=== PATIENT | female | born 1955 | race Caucasian/White ===

== ENCOUNTER → 2021-11-19 14:30 | Outpatient (BNVA) | payer OTHER, SELFPAY | PROVIDERS: PCP Internal Medicine; Visit Provider Hospitalist ==

== ENCOUNTER → 2022-01-24 15:28 | Outpatient (BNVA) | payer MEDICARE, SELFPAY | PROVIDERS: PCP Internal Medicine; Visit Provider Hospitalist | DX: R06.00 Dyspnea, unspecified (principal); J45.909 Unspecified asthma, uncomplicated; G47.33 Obstructive sleep apnea (adult) (pediatric); Z99.89 Dependence on other enabling machines and devices | CPT/HCPCS: 99212 ==

== ENCOUNTER → 2022-07-23 08:48 | Outpatient (BNVA) | payer MEDICARE, OTHER, SELFPAY | PROVIDERS: PCP Internal Medicine; Visit Provider Hospitalist | DX: G47.33 Obstructive sleep apnea (adult) (pediatric) (principal); R06.00 Dyspnea, unspecified; J45.909 Unspecified asthma, uncomplicated; Z99.89 Dependence on other enabling machines and devices | CPT/HCPCS: 99212 ==

== ENCOUNTER 2023-07-24 09:40 | Outpatient (AMB) | payer MEDICARE, SELFPAY ==
--- NOTE | 2023-07-24 09:45 | MHC.OFFVIS ---
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 Apparently she has had severe sleep apnea initially diagnosed back in 2014 in a split study PSG done at [facility]. Appears reviewed the results. The patient was titrated on PAP therapy and was able to resolve the sleep apnea with APAP. The patient has been using the same machine now for more than 7 years. She has no longer active with a [employer]. She has not gotten supplies in more than 3 for years. she still currently using her original CPAP That is also was 7 years old. She is having issues with the machine as it is not working. The patient had some been very compliant with her CPAP which she uses it while sleeping and also while napping. At this point I will request a new APAP to be set up to replace her malfunctioning machine and also in order to be active with a [employer] company and start getting supplies regularly. Also, the patient had been having issues with respiratory status. She did have pulmonary function studies many years ago. These were done at [facility]. however, her respiratory status being became significantly worse sometime in January after she received her Moderna vaccination. She started developing significant shortness of breath even with minimal activity. So severe that she went to the ER. In the ER she did have a CT scan of the chest PE protocol which ruled out pulmonary emboli. The patient was subsequently placed on prednisone and that did improve her symptoms to some degree. Currently she is still feeling short of breath with activity. Pzke-na-[id number] severity. She still works full-time job and sometimes working more than 40 hours. Her job tends to be more sedentary. In view of her severe reaction to the Moderna vaccination the patient has been cautious about undergoing additional Moderna boosters. A single be reasonable to week recheck her spike protein titers. 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 01/24/2022 the patient is here for a pulmonary follow-up visit. Overall the patient is feeling better. She did try the Symbicort but was not as helpful. Therefore she stopped it. She went back to using her Flovent. We did review her pulmonary function studies that she had at [facility] Demonstrating a mild restrictive ventilatory defect suggesting mild restrictive lung disease. In addition to that she had blood work done including SARS-CoV-2 antibodies which were indeed positive suggesting that she was exposed to COVID-19 at some point. Possibly the summer symptoms were related to that. At this point the patient has been getting better. We had requested a new CPAP for her since hers is no longer working. We did% prescription to her [employer] company [employer]. Will resubmit this application at this time for this new machine since her machine continues to be nonfunctional. Due to the fact that she is not using it she is developing increasing daytime drowsiness and [place] score elevated 10/24. I am hopeful that she can get a new machine soon. 07/23/2022 the patient is here for pulmonary follow-up visit. Overall the patient is doing well from a respiratory status. She is tolerating the Flovent. Denies any adverse effects. She has been seeing month well. She has not had to use her rescue inhaler. the patient also did get her new APAP, AirSense 11. her knee set up 6-16 cm. Her AHI is around 1-2 events an hour. She currently has a nasal cradle mask that is under good uncomfortable leaking in the retaining her face. We did adjusted and placed N30i small mask. seem to fit lot better. The patient tolerate this if she does not tolerated for reason will go ahead and request a different mask. meantime I did adjust her APAP 8-16. She can consider increasing the maximum pressure some. But at this point her AHI is good and does not require it. 07/24/2023 the patient is here for a pulmonary follow-up visit. Overall the patient is doing well. She continues use her CPAP every night. The CPAP therapy continues to be affecting beneficial. We did download her machine. The patient does use it for more than 4 hours a night. The patient's average pressure is 12 cm. She has an APAP set up 8-16. Her AHI is 0.7 events per hour. The patient does have a nasal mask. Unfortunately she does get sinusitis and also has a dry mouth. Therefore I did provide her with a F 30 trial mask that she could try. Size small seems to fit her well. She is going to try that and see if this is some mass she can use instead or she can use use it as needed when she developed sinusitis. She needs to get a prescription she will call the the office. Her asthma seems to be also in good control. She has a rescue inhaler. She also use antihistamine therapy. Usually the fall so were season so will see how she does this fall. For now she is doing well. The patient follow-up in a year's time or sooner if she develops any worsening symptoms. [facility]LY [facility] Medical History (Updated 07/27/23 @ 19:05 by Mauro Kramer MD) KAMILLE on CPAP Asthma Dyspnea Social History (Updated 11/19/21 @ 14:41 by RYAN Osman) Patient Tobacco Use Status: Former Tobacco user Tobacco use type: Cigarette Years Smoked: 15 years Review of Systems Const Reports weight gain Eyes Denies change in vision ENT Reports nasal congestion and Reports nasal discharge Card Denies chest pain and Reports dyspnea on exertion Resp Reports dyspnea on exertion GI Reports no additional complaints Musc Reports arthralgias Skin/Breast Denies rash Neuro Reports no additional complaints Physical Exam Vital Signs: Last Vital Signs Pulse 60 07/24/23 09:47 BP 128/70 07/24/23 09:47 Pulse Ox 95 07/24/23 09:47 Oxygen Delivery Method Room Air 07/24/23 09:47 BMI result Body Mass Index 43.9 Const General: alert Neck Neck: Yes normal visual inspection, Yes full ROM and Yes no lymphadenopathy Chest Chest palpation & inspection: normal inspection of the chest Resp Auscultation: diminished lung sounds Cardio Rate: regular rate Rhythm: regular rhythm Heart sounds: S1 normal heart sound present and S2 normal heart sound present GI Palpation (GI): Soft to palpation and nontender Auscultation: normal bowel sounds Skin General skin exam: rashes and/or lesions noted Extrem Right upper extremity: edema Assessment & Plan Assessment & Plan (1) Asthma: Code(s): J45.909 - Unspecified asthma, uncomplicated Qualifiers: Asthma severity: mild Asthma persistence: intermittent Asthma complication type: uncomplicated Qualified Code(s): J45.20 - Mild intermittent asthma, uncomplicated (2) KAMILLE on CPAP: Code(s): G47.33 - Obstructive sleep apnea (adult) (pediatric); Z99.89 - Dependence on other enabling machines and devices Plan continue Flovent 220, Okay to decrease to 1 puff daily continue APAP, adjusted to 8-16, N30i small. Will trial F30i small weight management Follow-up in 12 month or sooner if any other issues arise Coding Level of Care Code Est Pt Level 4 (03136) Diagnoses Mild intermittent asthma without complication J45.20 Asthma severity: mild Asthma persistence: intermittent Asthma complication type: uncomplicated KAMILLE on CPAP G47.33; Z99.89 Time Spent (min) 16
[2023-07-24 09:47] VITALS: BP 128/70; PULSE 60; O2SAT 95; BMI 43.9
== END 2023-07-24 10:08 | disposition home or self-care (01) ==
PROVIDERS: PCP Internal Medicine; Visit Provider Hospitalist
DX: J45.20 Mild intermittent asthma, uncomplicated (principal); G47.33 Obstructive sleep apnea (adult) (pediatric); Z99.89 Dependence on other enabling machines and devices
CPT/HCPCS: 99214

== ENCOUNTER → 2023-07-24 09:40 | Outpatient (BNVA) | payer MEDICARE, SELFPAY | PROVIDERS: Visit Provider Hospitalist | DX: G47.33 Obstructive sleep apnea (adult) (pediatric) (principal); J45.20 Mild intermittent asthma, uncomplicated; Z99.89 Dependence on other enabling machines and devices | CPT/HCPCS: 99212 ==

== ENCOUNTER 2024-07-27 09:13 | Outpatient (AMB) | payer MEDICARE, SELFPAY ==
--- NOTE | 2024-07-27 09:32 | MHC.OFFVIS ---
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 Apparently she has had severe sleep apnea initially diagnosed back in 2014 in a split study PSG done at [facility]. Appears reviewed the results. The patient was titrated on PAP therapy and was able to resolve the sleep apnea with APAP. The patient has been using the same machine now for more than 7 years. She has no longer active with a [employer]. She has not gotten supplies in more than 3 for years. she still currently using her original CPAP That is also was 7 years old. She is having issues with the machine as it is not working. The patient had some been very compliant with her CPAP which she uses it while sleeping and also while napping. At this point I will request a new APAP to be set up to replace her malfunctioning machine and also in order to be active with a [employer] company and start getting supplies regularly. Also, the patient had been having issues with respiratory status. She did have pulmonary function studies many years ago. These were done at [facility]. however, her respiratory status being became significantly worse sometime in January after she received her Moderna vaccination. She started developing significant shortness of breath even with minimal activity. So severe that she went to the ER. In the ER she did have a CT scan of the chest PE protocol which ruled out pulmonary emboli. The patient was subsequently placed on prednisone and that did improve her symptoms to some degree. Currently she is still feeling short of breath with activity. Vhoz-nx-yamxbddn severity. She still works full-time job and sometimes working more than 40 hours. Her job tends to be more sedentary. In view of her severe reaction to the Moderna vaccination the patient has been cautious about undergoing additional Moderna boosters. A single be reasonable to week recheck her spike protein titers. 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 01/24/2022 the patient is here for a pulmonary follow-up visit. Overall the patient is feeling better. She did try the Symbicort but was not as helpful. Therefore she stopped it. She went back to using her Flovent. We did review her pulmonary function studies that she had at [facility] Demonstrating a mild restrictive ventilatory defect suggesting mild restrictive lung disease. In addition to that she had blood work done including SARS-CoV-2 antibodies which were indeed positive suggesting that she was exposed to COVID-19 at some point. Possibly the summer symptoms were related to that. At this point the patient has been getting better. We had requested a new CPAP for her since hers is no longer working. We did% prescription to her [employer] company [employer] Will resubmit this application at this time for this new machine since her machine continues to be nonfunctional. Due to the fact that she is not using it she is developing increasing daytime drowsiness and [place] score elevated 10/24. I am hopeful that she can get a new machine soon. 07/23/2022 the patient is here for pulmonary follow-up visit. Overall the patient is doing well from a respiratory status. She is tolerating the Flovent. Denies any adverse effects. She has been seeing month well. She has not had to use her rescue inhaler. the patient also did get her new APAP, AirSense 11. her knee set up 6-16 cm. Her AHI is around 1-2 events an hour. She currently has a nasal cradle mask that is under good uncomfortable leaking in the retaining her face. We did adjusted and placed N30i small mask. seem to fit lot better. The patient tolerate this if she does not tolerated for reason will go ahead and request a different mask. meantime I did adjust her APAP 8-16. She can consider increasing the maximum pressure some. But at this point her AHI is good and does not require it. 07/24/2023 the patient is here for a pulmonary follow-up visit. Overall the patient is doing well. She continues use her CPAP every night. The CPAP therapy continues to be affecting beneficial. We did download her machine. The patient does use it for more than 4 hours a night. The patient's average pressure is 12 cm. She has an APAP set up 8-16. Her AHI is 0.7 events per hour. The patient does have a nasal mask. Unfortunately she does get sinusitis and also has a dry mouth. Therefore I did provide her with a F 30 trial mask that she could try. Size small seems to fit her well. She is going to try that and see if this is some mass she can use instead or she can use use it as needed when she developed sinusitis. She needs to get a prescription she will call the the office. Her asthma seems to be also in good control. She has a rescue inhaler. She also use antihistamine therapy. Usually the fall so were season so will see how she does this fall. For now she is doing well. The patient follow-up in a year's time or sooner if she develops any worsening symptoms. 07/27/2024 the patient is here for a pulmonary follow-up visit. Overall the patient is doing well. She did have a bout of sinusitis and she had to stop using the CPAP. She was trying to get a fullface mask [employer] but they would not approve her to have 2 different mask. I did have a spare F20 small air touch mask that did provide her. She is going to try. Appears that on her download she has an average of 19 liters/minute early therefore she is opening up her mouth with the nasal cradle. She does benefit from a fullface mask at this point anyway. She can also consider an F30 I mask small. If she does not like the F20 she can always call and I can prescribe her an F30 I that she can get through her [employer] company. From an asthma standpoint she is doing well. She still has inhaled cortical steroid that she uses daily and then the rescue inhaler that she uses as needed but typically not often. At this point she is going to continue with current therapy if the patient develops any worsening issues she will call. If she wants to change mask she was she will also call. She will follow-up in a year's time. [facility] Medical History (Updated 07/27/23 @ 19:05 by Mauro Kramer MD) KAMILLE on CPAP Asthma Dyspnea Social History (Updated 11/19/21 @ 14:41 by RYAN Osman) Patient Tobacco Use Status: Former Tobacco user Tobacco use type: Cigarette Years Smoked: 15 years Review of Systems Const Denies fever(s) Eyes Denies change in vision ENT Reports nasal congestion and Reports nasal discharge Card Denies chest pain and Reports dyspnea on exertion Resp Reports dyspnea on exertion GI Reports no additional complaints Musc Reports arthralgias Skin/Breast Denies rash Neuro Reports no additional complaints Physical Exam Vital Signs: Last Vital Signs Pulse 65 07/27/24 09:33 BP 118/60 07/27/24 09:33 Pulse Ox 95 07/27/24 09:33 Oxygen Delivery Method Room Air 07/27/24 09:33 BMI result Body Mass Index 43.5 Const General: alert Neck Neck: Yes normal visual inspection, Yes full ROM and Yes no lymphadenopathy Chest Chest palpation & inspection: normal inspection of the chest Resp Auscultation: diminished lung sounds Cardio Rate: regular rate Rhythm: regular rhythm Heart sounds: S1 normal heart sound present and S2 normal heart sound present GI Palpation (GI): Soft to palpation and nontender Auscultation: normal bowel sounds Skin General skin exam: rashes and/or lesions noted Extrem Right upper extremity: edema Assessment & Plan Assessment & Plan (1) Asthma: Code(s): J45.909 - Unspecified asthma, uncomplicated Category: Medical Qualifiers: Asthma complication type: uncomplicated Asthma persistence: intermittent Asthma severity: mild Qualified Code(s): J45.20 - Mild intermittent asthma, uncomplicated (2) KAMILLE on CPAP: Code(s): G47.33 - Obstructive sleep apnea (adult) (pediatric); Z99.89 - Dependence on other enabling machines and devices Category: Medical Plan continue Flovent 220, Okay to decrease to 1 puff daily. Will need to call to replace the flovent when she runs out continue APAP, adjusted to 8-16, N30i small. Will trial F20 foam, consider F30i or F40 if no better weight management Follow-up in 12 month or sooner if any other issues arise Coding Level of Care Code Est Pt Level 4 (41367) Diagnoses Mild intermittent asthma without complication J45.20 Asthma complication type: uncomplicated Asthma persistence: intermittent Asthma severity: mild KAMILLE on CPAP G47.33; Z99.89 Time Spent (min) 17
[2024-07-27 09:33] VITALS: BP 118/60; PULSE 65; O2SAT 95; BMI 43.5
== END 2024-07-27 11:17 | disposition home or self-care (01) ==
PROVIDERS: PCP Internal Medicine; Visit Provider Hospitalist
DX: J45.20 Mild intermittent asthma, uncomplicated (principal); G47.33 Obstructive sleep apnea (adult) (pediatric); Z99.89 Dependence on other enabling machines and devices
CPT/HCPCS: 99214

== ENCOUNTER → 2024-07-27 09:13 | Outpatient (BNVA) | payer MEDICARE, SELFPAY | PROVIDERS: PCP Internal Medicine; Visit Provider Hospitalist | DX: J45.20 Mild intermittent asthma, uncomplicated (principal); G47.33 Obstructive sleep apnea (adult) (pediatric); Z99.89 Dependence on other enabling machines and devices | CPT/HCPCS: 99212 ==

== ENCOUNTER 2025-07-26 09:14 | Outpatient (AMB) | payer MEDICARE, SELFPAY ==
--- NOTE | 2025-07-26 09:16 | A.OFFVIS_ITS ---
Vital Signs 07/26/25 09:17 Height 5 ft 2 in Weight 233 lb 11.04 oz BMI 42.7 BP 134/62 Blood Pressure Location Lt brachial Position Sitting Pulse 62 Pulse Source Pulse Oximeter Pulse Oximetry (%) 95 Oxygen Delivery Method Room Air Intake Visit Reasons: Obstructive sleep apnea Drone Pilot Required: No Accompanied by: Self / Same As Patient Allergies Sulfa (Sulfonamide Antibiotics) Allergy (Severe, Verified 07/26/25 09:21) Anaphylaxis HPI Comments Details: The patient is a 70-year-old woman previously followed by a rental sales associate is in [place] with a known history of obstructive sleep apnea. Apparently she has had severe sleep apnea initially diagnosed back in 2014 in a split study PSG done at [facility]. Appears reviewed the results. The patient was titrated on PAP therapy and was able to resolve the sleep apnea with APAP. The patient has been using the same machine now for more than 7 years. She has no longer active with a [employer] company. She has not gotten supplies in more than 3 for years. she still currently using her original CPAP That is also was 7 years old. She is having issues with the machine as it is not working. The patient had some been very compliant with her CPAP which she uses it while sleeping and also while napping. At this point I will request a new APAP to be set up to replace her malfunctioning machine and also in order to be active with a [employer] company and start getting supplies regularly. Also, the patient had been having issues with respiratory status. She did have pulmonary function studies many years ago. These were done at [facility]. however, her respiratory status being became significantly worse sometime in January after she received her Moderna vaccination. She started developing significant shortness of breath even with minimal activity. So severe that she went to the ER. In the ER she did have a CT scan of the chest PE protocol which ruled out pulmonary emboli. The patient was subsequently placed on prednisone and that did improve her symptoms to some degree. Currently she is still feeling short of breath with activity. [id number] severity. She still works full-time job and sometimes working more than 40 hours. Her job tends to be more sedentary. In view of her severe reaction to the Moderna vaccination the patient has been cautious about undergoing additional Moderna boosters. A single be reasonable to week recheck her spike protein titers. 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 01/24/2022 the patient is here for a pulmonary follow-up visit. Overall the patient is feeling better. She did try the Symbicort but was not as helpful. Therefore she stopped it. She went back to using her Flovent. We did review her pulmonary function studies that she had at [facility] Demonstrating a mild restrictive ventilatory defect suggesting mild restrictive lung disease. In addition to that she had blood work done including SARS-CoV-2 antibodies which were indeed positive suggesting that she was exposed to COVID-19 at some point. Possibly the summer symptoms were related to that. At this point the patient has been getting better. We had requested a new CPAP for her since hers is no longer working. We did% prescription to her [employer] company [employer]. Will resubmit this application at this time for this new machine since her machine continues to be nonfunctional. Due to the fact that she is not using it she is developing increasing daytime drowsiness and Foxworth score elevated 10/24. I am hopeful that she can get a new machine soon. 07/23/2022 the patient is here for pulmonary follow-up visit. Overall the patient is doing well from a respiratory status. She is tolerating the Flovent. Denies any adverse effects. She has been seeing month well. She has not had to use her rescue inhaler. the patient also did get her new APAP, AirSense 11. her knee set up 6-16 cm. Her AHI is around 1-2 events an hour. She currently has a nasal cradle mask that is under good uncomfortable leaking in the retaining her face. We did adjusted and placed N30i small mask. seem to fit lot better. The patient tolerate this if she does not tolerated for reason will go ahead and request a different mask. meantime I did adjust her APAP 8- 16. She can consider increasing the maximum pressure some. But at this point her AHI is good and does not require it. 07/24/2023 the patient is here for a pulmonary follow-up visit. Overall the patient is doing well. She continues use her CPAP every night. The CPAP therapy continues to be affecting beneficial. We did download her machine. The patient does use it for more than 4 hours a night. The patient's average pressure is 12 cm. She has an APAP set up 8-16. Her AHI is 0.7 events per hour. The patient does have a nasal mask. Unfortunately she does get sinusitis and also has a dry mouth. Therefore I did provide her with a F 30 trial mask that she could try. Size small seems to fit her well. She is going to try that and see if this is some mass she can use instead or she can use use it as needed when she developed sinusitis. She needs to get a prescription she will call the the office. Her asthma seems to be also in good control. She has a rescue inhaler. She also use antihistamine therapy. Usually the fall so were season so will see how she does this fall. For now she is doing well. The patient follow-up in a year's time or sooner if she develops any worsening symptoms. 07/27/2024 the patient is here for a pulmonary follow-up visit. Overall the patient is doing well. She did have a bout of sinusitis and she had to stop using the CPAP. She was trying to get a fullface mask [employer] but they would not approve her to have 2 different mask. I did have a spare F20 small air touch mask that did provide her. She is going to try. Appears that on her download she has an average of 19 liters/minute early therefore she is opening up her mouth with the nasal cradle. She does benefit from a fullface mask at this point anyway. She can also consider an F30 I mask small. If she does not like the F20 she can always call and I can prescribe her an F30 I that she can get through her [employer] company. From an asthma standpoint she is doing well. She still has inhaled cortical steroid that she uses daily and then the rescue inhaler that she uses as needed but typically not often. At this point she is going to continue with current therapy if the patient develops any worsening issues she will call. If she wants to change mask she was she will also call. She will follow-up in a year's time. 07/26/2025 the patient is here for pulmonary follow-up visit. Overall the patient has been doing well. She has been tolerating the CPAP well. CPAP therapy has been affecting beneficial. AHI is below 1. Although she did not tolerate the fullface mask. She went back to the N30 I small. I will send another script to the [employer] company, [place]. This is the only when she tolerates. Unfortunately she gets a very dry mouth. She does not tolerate the chinstrap. She can try the mouth tape. She is going to look into it in the meantime she will continue with the current nasal mask. The patient pressure are reasonable. At this time will continue to monitor closely. I did increase her maximum pressure from 16-17 otherwise left everything the same. From an asthma standpoint the patient is doing well she continues use the inhaled corticosteroids once a day and continues use her rescue inhaler as needed but typically does not require. Will follow-up in 8-12 months if she has any issues prior to this she can always call for an earlier assessment. [facility] Medical History (Updated 07/27/23 @ 19:05 by Mauro Kramer MD) KAMILLE on CPAP Asthma Dyspnea Social History Patient Tobacco Use Status: Former Tobacco user Tobacco use type: Cigarette Years Smoked: 15 years Review of Systems Const Denies fever(s) Eyes Denies change in vision ENT Reports nasal congestion and Reports nasal discharge Card Denies chest pain and Reports dyspnea on exertion Resp Reports dyspnea on exertion GI Reports no additional complaints Musc Reports arthralgias Skin/Breast Denies rash Neuro Reports no additional complaints Physical Exam Vital Signs: Last Vital Signs Pulse 62 07/26/25 09:17 BP 134/62 07/26/25 09:17 Pulse Ox 95 07/26/25 09:17 Oxygen Delivery Method Room Air 07/26/25 09:17 BMI result Body Mass Index 42.7 Const General: alert Neck Neck: Yes normal visual inspection, Yes full ROM and Yes no lymphadenopathy Chest Chest palpation & inspection: normal inspection of the chest Resp Auscultation: diminished lung sounds Cardio Rate: regular rate Rhythm: regular rhythm Heart sounds: S1 normal heart sound present and S2 normal heart sound present GI Palpation (GI): Soft to palpation and nontender Auscultation: normal bowel sounds Skin General skin exam: rashes and/or lesions noted Extrem Right upper extremity: edema Assessment & Plan Assessment & Plan (1) Asthma: Code(s): J45.909 - Unspecified asthma, uncomplicated Category: Medical Qualifiers: Asthma complication type: uncomplicated Asthma persistence: intermittent Asthma severity: mild Qualified Code(s): J45.20 - Mild intermittent asthma, uncomplicated (2) KAMILLE on CPAP: Code(s): G47.33 - Obstructive sleep apnea (adult) (pediatric); Z99.89 - Dependence on other enabling machines and devices Category: Medical Plan Flovent 220 1 puff daily MARCELLE as needed continue APAP, adjusted to 8-16->8-17, N30i small. Did not tolerate FM weight management Add astelin nasal spray Benadryl as needed Follow-up in 12 month or sooner if any other issues arise Medications: New azelastine administer into each nostril 2 sprays intranasal BID 30 mL 6RF 30 days Coding Level of Care Code Est Pt Level 4 (13786) Complex EM visit Add On G2211 Diagnoses Mild intermittent asthma without complication J45.20 Asthma complication type: uncomplicated Asthma persistence: intermittent Asthma severity: mild KAMILLE on CPAP G47.33; Z99.89 Time Spent (min) 17
[2025-07-26 09:17] VITALS: BP 134/62; PULSE 62; O2SAT 95; BMI 42.7
== END 2025-07-26 09:50 | disposition home or self-care (01) ==
PROVIDERS: PCP Internal Medicine; Visit Provider Hospitalist
DX: J45.20 Mild intermittent asthma, uncomplicated (principal); G47.33 Obstructive sleep apnea (adult) (pediatric); Z99.89 Dependence on other enabling machines and devices
CPT/HCPCS: 99214; G2211

== ENCOUNTER → 2025-07-26 09:14 | Outpatient (BNVA) | payer MEDICARE, SELFPAY | PROVIDERS: PCP Internal Medicine; Visit Provider Hospitalist | DX: J45.20 Mild intermittent asthma, uncomplicated (principal); G47.33 Obstructive sleep apnea (adult) (pediatric); Z99.89 Dependence on other enabling machines and devices; E66.9 Obesity, unspecified | CPT/HCPCS: 99212 ==